=== PATIENT | female | born 1955 | race Caucasian/White ===

== ENCOUNTER → 2016-07-02 | Outpatient (CLI) | payer MEDICARE, OTHER ==
[~2016-07-02] MED LIST: ABILIFY PO; ACETAMINOP160 MG/13 GT; ACETAMINOPHEN PO; ACETIC ACID 2% AU; ACETIC ACID-HC10 ML OU; ACID CONTROL150 M1 GT; ADULT MUCU100 MG/5 M; ALBUTEROL 0.5ML INH; ALBUTEROL2.5 MG/3 M INH; ALLERGY RELIEF10 M6 GT; ANUCORT-HC PR; ANUSOL SUPP1 SUPP PR; APAP CODEINE; ARTIFICIAL TEAR15 M6 OU; ARTIFICIAL TEAR15 ML OU; BACID; BACID GT; BACID PEG; BACLOFEN10 MG GT; BACLOFEN10 MG PO; BACTROBAN15 GM TOP; BIAXIN PO; BISA-LAX10 MG/SUP1 RC; BISACODYL10 MG GT; BISACODYL10 MG/SUPP PR; CALCIUM CA500 MG/5 M GT; CALCIUM CARBON650 MG GT; CALCIUM PEG; CALCIUM500 MG; CECLOR PO; CENTRUM; CENTRUM GT; CERTAVITE GT; CHLORHEXIDINE FL1 ML MC; CLARITIN10 M1; CLARITIN10 MG GT; CLEOCIN PO; COLACE50 MG/5 ML GT; CORRECTOL5 MG GT; DEPAKOTE GT; DEPAKOTE SPRIN125 MG GT; DIOCTO GT; DITROPAN5 MG; DOCUSATE SODIUM GT; EASY-LAX100 MG PO; EES/SULFISOXAZ100 ML PO; FAMOTIDINE PO; FERRO-TIME325 MG PO; FIBERSTAT GT; FISH OIL 1,0001 EAC1 PO; FISH OIL 11600 MG/5 GT; FLEET GLYC1 SUPP.REC PR; FLONASE ALLERG9.9 ML; FLONASE SENSIM9.9 ML; FLONASE16 GM; FOSAMAX GT; GABAPENTIN400 M2 GT; GAS RELIEF; GAS-X166 MG GT; GASTROCROM PEG; GAVILYTE-C SO4000 ML GT; GENTLE LAXATIVE10 MG; HALDOL GT; HALDOL PO; HEMOCYTE-F TABL1 TAB PO; HEMOCYTE324 MG PO; IMMUNOTHERAPY SUBQ; KEFLEX500 MG PO; LACTULOSE10 G/15 ML GT; LANSOPRAZOLE30 MG PEG; LEVAQUIN GT; LEVAQUIN PO; LORTAB 7.5-5001 TAB PO; LOVENOX SUBQ; MACRODANTIN GT; MACRODANTIN PEG; MACRODANTIN PO; MILK OF MAGNESIA PEG; MIRALAX17 GM GT; MUCINEX DM1 TAB.SR . PO; MULTI-DELYN473 M1 GT; MYLICON40 MG/0.1 GT; NEBCIN1.2 GM IV; NEURONTIN PO; NEURONTIN300 MG PO; OMEGA 3 1,0001 EACH GT; OYSTER CALCIUM500 MG GT; PATADAY2.5 ML OU; PATANOL5 ML; PAXIL GT; PERIDEX480 ML; PERIDEX480 ML PO; PHENERGAN SUPP25 M1 PR; PHOSPHASAL TAB1 EACH; PREVACID GT; PROLIA60 MG/1 ML SQ; PYRIDIUM PO; PYRIDIUM100 MG PO; REGLAN GT; REGLAN PO; RISAMINE OINTM113 GM TOP; ROBITUSSIN-DM120 ML GT; SENNA S TABLET1 TAB GT; SENNA S TABLET1 TAB PO; SENNA8.6 M2 GT; SINGULAIR PO; SODIUM CHLORID; SUDAFED PO; TOBRAMYCIN40 MG/1 ML IV; TYLENOL #3 GT; TYLENOL325 M1 GT; TYLOX 5/500 CAP1 CAP GT; UTI-STAT L3875 MG/31 GT; VITAL-D RX TABL1 TAB GT; VITAMIN C GT; VITAMIN C PO; VITAMIN C500 M1; VITAMIN C500 MG/15 PEG; VITAMIN D1000 UNI1 PO; VITAMIN D32000 UNIT GT; VITAMIN D400 UNI1 PEG; ZANTAC150 MG GT; ZINC SULFATE GT; ZINC SULFATE PO; [UNRECOGNIZED DRUG - OTHER]; [UNRECOGNIZED DRUG - OTHER] GT; [UNRECOGNIZED DRUG - OTHER] GT; [UNRECOGNIZED DRUG - OTHER] PEG; [UNRECOGNIZED DRUG - OTHER] PEG; [UNRECOGNIZED DRUG - OTHER] PEG
--- NOTE | ~2016-07-02 | CT134 ---
[facility] A Service of [facility] & [facility] RADIOLOGY TEXT RESULTS PATIENT: BABAK JIMENEZ LOCATION: CIVR : 57 UNIT #: [id number] AGE: [address]: Kathy Snyder MD SEX: F ORDER DR: [id number] [facility] [address] [place], [place] [address] [id number] O MR#: [id number] Acc #: [id number] NAME: BABAK JIMENEZ : 1955 SEX: F STUDY DATE/TIME: 07/02/2016 9:50 UNIT: CIVR ROOM: STUDY DESCRIPTION: CT Guide Attending Physician: Kathy Snyder M.D. Ordering Physician: Kathy Snyder M.D. Primary Care Physician: Alicia Schwartz MEDICAL IMAGING REPORT This report is preliminary unless electronic signature is present EXAM CT-guided bone marrow biopsy. This CT exam was performed with one or more of the following radiation dose reduction techniques: automatic exposure control, adjustment of mA and/or kV according to patient size, and iterative reconstruction. INDICATION Ms. Jimenez is a 61-year-old woman with a history of leukopenia. She is a [place] patient. PROCEDURE There risks, benefits, and alternatives to the procedure were explained to the patient's insurance follow up representative and signed, informed consent was obtained. General anesthesia was induced. Patient was placed in a left lateral decubitus position. Preliminary CT scan was performed through the region of interest. An appropriate site overlying the patient's left iliac bone was selected. Overlying skin was marked. Patient was prepped and draped in the usual sterile fashion. Time-out was performed as per protocol. Skin and subcutaneous tissues were anesthetized with buffered lidocaine and a bone marrow biopsy needle was advanced into the left iliac bone. Repeat CT scan confirmed appropriate positioning of the needle which was then advanced into the bone marrow. Bone marrow aspirate was obtained. Needle was advanced and then removed which did not appear to yield an adequate core sample. Needle was subsequently repositioned and its position was confirmed with a CT image and it was again advanced into the bone marrow and at this point, there appeared to be adequate sample. Manual pressure was then applied until hemostasis was obtained. Patient was awakened from anesthesia and transferred to the recovery room. IMPRESSION Technically successful CT-guided bone marrow biopsy and aspiration as noted above. CT was used during the procedure and permanent images were STS. [facility] A Service of [facility] RADIOLOGY TEXT RESULTS PATIENT: BABAK JIMENEZ LOCATION: [facility] : 57 UNIT #: [id number] AGE: [address]: Kathy Snyder MD SEX: F ORDER DR: saved. Dictated by... Josefina Taylor M.D. THIS IS AN ELECTRONICALLY VERIFIED REPORT Josefina Taylor M.D. at 07/04/2016 2:08 PM MARV/violeta TD: 07/03/2016 11:27 JOB #: [id number] MEDICAL IMAGING REPORT Page 1 of 1 COPY
--- NOTE | ~2016-07-02 | XA51 ---
[facility] A Service of [facility] & [facility] RADIOLOGY TEXT RESULTS PATIENT: BABAK JIMENEZ LOCATION: [facility] : 57 UNIT #: [id number] AGE: [address]: Kathy Snyder MD SEX: F ORDER DR: [id number] [facility] [address] [place], [place] [address] [id number] O MR#: [id number] Acc #: [id number] NAME: BABAK JIMENEZ : 1955 SEX: F STUDY DATE/TIME: 07/02/2016 9:50 UNIT: [facility] ROOM: STUDY DESCRIPTION: XA BX Bone Marrow Attending Physician: Kathy Snyder M.D. Ordering Physician: Kathy Snyder M.D. Primary Care Physician: Alicia Schwartz MEDICAL IMAGING REPORT This report is preliminary unless electronic signature is present EXAM XA BX bone marrow. INDICATION Ms. Jimenez is a 61-year-old woman with a history of leukopenia. She is a [place] patient. FINDINGS Please see CT guide for results. Dictated by... Josefina Taylor M.D. THIS IS AN ELECTRONICALLY VERIFIED REPORT Josefina Taylor M.D. at 07/04/2016 2:05 PM AFF/violeta TD: 07/03/2016 11:28 JOB #: [id number] MEDICAL IMAGING REPORT Page 1 of 1 COPY
[2016-07-02 07:47] LABS: EOSINOPHIL# 0.3 X10e3 (0-0.7); EOSINOPHIL% 10.1 % (0.0-7.0); HEMATOCRIT 42.7 % (35.0-45.0); HEMOGLOBIN 13.8 gm/dL (12.0-16.0); LYMPHOCYTE% 28.8 % (17.0-45.0); MEAN CELL VOLUME 82.8 FL (83-96); MEAN CORPUSCULAR HEMOGLOBIN 26.7 PG (28-34); MEAN CORPUSCULAR HGB CONC 32.3 g/dL (30-36); MONOCYTE# 0.5 X10e3 (0-1.0); MONOCYTE% 13.6 % (3.0-12.0); NEUTROPHIL# 1.6 X10e3 (1.5-7.1); NEUTROPHIL% 46.5 % (40-75); PLATELET COUNT 219 X10e3 (140-420); RED BLOOD COUNT 5.16 X10e (3.90-5.30); RED CELL DISTRIBUTION WIDTH 13.7 % (11.0-15.5); WHITE BLOOD COUNT 3.4 X10e3 (4.0-10.5)
[2016-07-02 07:49] LABS: DIFF IND NO
[2016-07-02 08:05] LABS: PARTIAL THROMBOPLASTIN TIME 29.2 SECONDS (23.5-31.3); PROTHROMBIN TIME (PATIENT) 10.1 SECONDS (9.6-11.5)
== END | disposition home or self-care (01) ==
LOC: CIVR 07:14
PROVIDERS: Internal Medicine Hematology
DX: D72.819 Decreased white blood cell count, unspecified (principal); F72 Severe intellectual disabilities; G80.9 Cerebral palsy, unspecified; K21.9 Gastro-esophageal reflux disease without esophagitis; Z88.1 Allergy status to other antibiotic agents
CPT/HCPCS: 77012; 85025; 85610; 85730; 88237; 88264; 88271; 88275; 88305; J2250; J3010

== ENCOUNTER → 2016-07-16 | Outpatient (CLI) | payer MEDICARE, OTHER | END | disposition home or self-care (01) | LOC: CSSDAY 13:14 | DX: M81.0 Age-related osteoporosis without current pathological fracture (principal); Z79.899 Other long term (current) drug therapy | CPT/HCPCS: 96372; J0897 ==

== ENCOUNTER 2016-09-06 09:02 | Inpatient (IN) | payer MEDICARE, OTHER ==
--- NOTE | ~2016-09-06 | A ---
[facility] Nutrition Therapy DATE: 09/07/16 Patient: BABAK JIMENEZ Physician: CHRYSTAL Address: [facility] Room/Bed: [address] [place] [address], Zip: [place] [address] Admit Date: 09/06/16 Date of : 57 Height: Weight: 120 54.5 NUTRITIONAL ASSESSMENT: REASON: 1 nutrition risk pt re: tubefeed Dx: fever PMH: cerebral palsy, seizure disorder, chronic iritis, dysphagia w/ aspiration PNA Anthropometrics: ht: 5'1" wt: 120# (54.5 kg) BMI 22 Labs: Cl- 99, Creat 0.3, AST 127, ALT 96, Lip 17 Meds: bisacodyl, zithromax, rocephin, miralax, lioresal, mylicon, neurotin, phenergan I/O & Bowel function: 1305/4, last BMI 09/07 Skin Integrity: puncture procedure site- posterior, bruising- rt lower arm, left lower forearm, cellulitis- rt wrist Estimated Nutrition Needs: 6291-7751 kcal (28-33 kcal/kg) 54.5-81.75 (1.0-1.5 g/kg) Assessment: Chart reviewed, events noted. 61 y/o female admitted for fever. Ms. Jimenez is a resident of [facility] and is non-verbal, per chart. She has a PEG tube which she is currently receiving her normal enteral nutrition regimen from [place] with Osmolite 1.5 @ 110 mL/hr 7am-1pm and 4pm-9pm. Pt was not appropriate to speak with and there were no family members in the room. Please see recommendations. -Home enteral nutrition support provides 1815 kcal, 75 g pro, 919 ml free h20 Dx: Inadequate oral intake r/t PMH-dysphagia aeb PEG in place, home enteral nutrition in place. Intervention: 1. enteral nutrition Monitoring, Evaluation and Goals: 1. Enteral nutrition; tolerate/receive >80% estimated goal volume at goal 2. Labs; WNL 3. Skin; prevent skin breakdown Recommendations: 1. Change current enteral nutrition support to Osmolite 1.5 @ 20 mL/hr and advance 10 mL q 6 hours to goal rate of 50 mL/hr x 24 hours. Add free water flushes per . [facility] Nutrition Therapy DATE: 09/07/16 Patient: BABAK JIMENEZ Physician: CHRYSTAL Address: [facility] Room/Bed: [address] [place] [address], Zip: [place] [address] Admit Date: 09/06/16 Date of : 57 Height: Weight: 120 54.5 -This provides 1800 kcal, 75 g protein, 912 mL. 2. Monitor for signs of enteral nutrition tolerance. Maintain HOB 30-45 degrees during en administration RD will f/u per protocol as pt is at mild/moderately nutritional risk. Respectfully, ANDREW SNYDER RD, LD Margie Landrum MS, RD, LD Food and Nutritional Services [facility] cc: client file
--- NOTE | ~2016-09-06 | CR7 ---
[facility] A Service of [facility] & [facility] RADIOLOGY TEXT RESULTS PATIENT: BABAK MARIE LOCATION: [place] [address] : [birth year] UNIT #: [id number] AGE: [address]: Robyn Valdez MD SEX: F ORDER DR: [id number] [facility] [address] [place], [place] [address] [id number] I MR#: [id number] Acc #: [id number] NAME: BABAK MARIE : 1955 SEX: F STUDY DATE/TIME: 09/06/2016 15:40 UNIT: [facility] ROOM: [facility] STUDY DESCRIPTION: CR Abdomen Single AP View Attending Physician: Joanie Demarco M.D. Ordering Physician: Ed Darrin Castano M.D. Primary Care Physician: Alicia Schwartz MEDICAL IMAGING REPORT This report is preliminary unless electronic signature is present EXAM AP abdomen HISTORY Abdomen pain and constipation for 10 days. FINDINGS There is moderately severe gaseous distension of the right colon and proximal transverse colon measuring up to just over 12 cm in diameter, and there is gaseous distension of small bowel in the left and right abdomen and upper pelvis measuring up to 6 cm in the left upper quadrant and just over 5 cm in the pelvis. Findings could be due to generalized ileus versus bowel obstruction, and the appearance could be secondary to colonic obstruction in the transverse colon. Either short-term followup x-ray or CT should be considered. Gastrostomy tube projected over the left upper quadrant. The stomach is decompressed. Dictated by... Shukri Parisi M.D. THIS IS AN ELECTRONICALLY VERIFIED REPORT Shukri Parisi M.D. at 09/07/2016 3:04 PM DFL/psc TD: 09/07/2016 00:16 JOB #: [id number] MEDICAL IMAGING REPORT Page 1 of 1 COPY
--- NOTE | ~2016-09-06 | CT2 ---
[facility] A Service of [facility] & [facility] RADIOLOGY TEXT RESULTS PATIENT: BABAK MARIE LOCATION: [facility] 55-01 : 56 UNIT #: [id number] AGE: [address]: Robyn Valdez MD SEX: F ORDER DR: [id number] [facility] [address] [place], [place] [address] [id number] I MR#: [id number] Acc #: [id number] NAME: BABAK MARIE : 1955 SEX: F STUDY DATE/TIME: 09/08/2016 17:08 UNIT: [facility] ROOM: [facility] STUDY DESCRIPTION: CT Abd and Pelv W Cont Attending Physician: Robyn Valdez M.D. Ordering Physician: Robyn Valdez M.D. Primary Care Physician: Alicia Schwartz MEDICAL IMAGING REPORT This report is preliminary unless electronic signature is present EXAM CT abdomen and pelvis with contrast HISTORY 61-year-old female with abdominal distension, UTI, fever since 09/06/2016. COMPARISON CT abdomen and pelvis, 10/26/2014 FINDINGS Axial images performed through the abdomen and pelvis following IV and oral contrast. Multiplanar reconstructed images reviewed at a workstation. This CT exam was performed with one or more of the following radiation dose reduction techniques: Automatic exposure control, adjustment of mA and/or kV according to patient size, and iterative reconstruction. ABDOMEN: There are small bilateral pleural effusions right greater than left, with a moderate amount of bibasilar atelectasis and/or infiltrate. Liver and spleen unremarkable. Gallbladder surgically absent. Pancreas, kidneys and adrenal glands unremarkable. There is diffuse abdominal distension with multiple air-fluid levels. This is nonspecific in the institutionalized patient. G tube with the balloon inflated is seen in the stomach. Retroperitoneum unremarkable. PELVIS: Bladder is distended with a small amount of gas possibly related to recent instrumentation. Uterus and adnexa unremarkable. Osseous structures demonstrate osteopenia. Mild biconcave deformity of L3 suggests mild fracture, does not appear acute. IMPRESSION 1. Small bilateral pleural effusions with bibasilar atelectasis and/or infiltrates. [facility] A Service of [facility] & [facility] RADIOLOGY TEXT RESULTS PATIENT: BABAK MARIE LOCATION: [facility] 554-01 : [birth year] UNIT #: [id number] AGE: [address]: Robyn Valdez MD SEX: F ORDER DR: 2. Diffuse abdominal distension with air and fluid distension and multiple air-fluid levels. This is nonspecific in the institutionalized patient and may reflect nonobstructive dilatation. Correlate with patient's clinical symptoms. Potentially, this could represent an ileus. Distal obstruction considered unlikely as there is no obstructing lesion identified and the dilatation involves both small and large bowel. The G tube appears in appropriate position. 3. Moderately distended bladder. Dictated by... Lenora Garcia M.D. THIS IS AN ELECTRONICALLY VERIFIED REPORT Lenora Garcia M.D. at 09/09/2016 2:48 PM OBED/nanda TD: 09/08/2016 23:55 JOB #: [id number] MEDICAL IMAGING REPORT Page 1 of 1 COPY
--- NOTE | ~2016-09-06 | CR72 ---
[facility] A Service of [facility] & [facility] RADIOLOGY TEXT RESULTS PATIENT: BABAK MARIE LOCATION: [facility] 554-01 : 57 UNIT #: [id number] AGE: [address]: Robyn Valdez MD SEX: F ORDER DR: [id number] [facility] [address] [place], [place] [address] [id number] MR#: [id number] Acc #: [id number] NAME: BABAK MARIE : 1955 SEX: F STUDY DATE/TIME: 09/06/2016 10:34 UNIT: [facility] ROOM: STUDY DESCRIPTION: CR Chest Single View Portable Ordering Physician: Conor David M.D. MEDICAL IMAGING REPORT This report is preliminary unless electronic signature is present EXAM Portable chest INDICATIONS Fever and low oxygen saturations today. COMPARISON STUDIES 06/15/2010. FINDINGS There is low-volume inspiration. There is a dense infiltrate in the left base suspicious for pneumonia. There are generalized increased interstitial markings. There is some atelectasis in the right base. Heart size stable. Prominent bowel gas. IMPRESSION Low-volume inspiration. Dense consolidation in the left base suspicious for pneumonia. Generalized hazy increased interstitial markings. Dictated by... Mejia Garcia M.D. THIS IS AN ELECTRONICALLY VERIFIED REPORT Mejia Garcia M.D. at 09/07/2016 7:50 AM ARS/pcl TD: 09/06/2016 14:05 JOB #: [id number] MEDICAL IMAGING REPORT Page 1 of 1 COPY
--- NOTE | ~2016-09-06 | DS ---
Unit #: [id number] #: [id number] Patient: BABAK MARIE [id number] [facility] [address] [place], [place] [address] [id number] I MR#: [id number] NAME: BABAK MARIE ROOM: [facility] Age: 61 Sex: F Admission Date: 09/06/2016 : 1955 Discharge Date: 09/12/2016 Attending Physician: Robyn Valdez M.D. Primary Care Physician: Alicia Schwartz DISCHARGE SUMMARY DIAGNOSIS ON ADMISSION Left pneumonia. DIAGNOSES ON DISCHARGE 1. Pneumonia. 2. Acute respiratory failure, improved. 3. Abdominal ileus improved. 4. Acute extended fgmaspgz-mren-lmffgjiil urinary tract infection. 5. History of profound mental retardation with cerebral palsy. 6. Functional quadriplegia. 7. Seizure disorder. 8. Dysphagia with percutaneous endoscopic gastrostomy tube feeds. 9. Osteoporosis. 10. Esophagitis. DIAGNOSTIC STUDIES LABORATORY: Patient's WBC is 3.5, hemoglobin 11.5, and platelet count is 313. Patient's creatinine is 0.5, sodium 139, and potassium is 4.3. IMAGING: Abdominal x-ray revealed ileus, which shows improvement as compared with the previous examination. HOSPITAL COURSE This 61-year-old female was admitted to [facility] and was treated for pneumonia, which was causing fever. Pneumonia, which could be aspiration. Patient was treated with antibiotics and is feeling much better now. Acute E. coli ESBL UTI. Patient is being treated with antibiotics and she will be transferred on Invanz back to the facility. Abdominal ileus. Patient's tube feeds were slowly advanced and she is tolerating it good. RECOMMENDATIONS ON DISCHARGE 1. Condition is stable. 2. Activity as tolerated. MEDICATIONS 1. Tylenol 650 mg via G tube q.6 hours p.r.n. fever. 2. Flonase 2 sprays each nostril b.i.d. 3. Anusol suppository 25 mg per rectally every 48 hours for now. Unit #: [id number] #: [id number] Patient: BABAK MARIE 4. Neurontin 400 mg via G tube b.i.d. 5. Lactobacillus 1 tablet via G tube daily. 6. Mylicon 120 mg via G tube b.i.d. 7. Phenergan 12.5 mg per rectally as needed. 8. Dulcolax suppository q.48 hours. 9. Colace 100 mg b.i.d. 10. MiraLAX 17 g b.i.d. 11. Fish oil daily. 12. Zantac 150 mg via G tube b.i.d. 13. Tylenol with codeine #3 one tablet q.8 hours p.r.n. Script was written. 14. Tums 500 mg via G tube b.i.d. 15. Vitamin D 2000 units via G tube daily. 16. Invanz 1 g IV daily for 1 week. DISPOSITION Patient will be transferred to [place]. Please feel free to call us if there are any questions regarding this hospitalization. Patient's overall prognosis is poor. Kindly discuss goals of care with healthcare surrogate. Dictated by... Khadra Griggs TD: 09/12/2016 11:00 JOB #: [id number] DISCHARGE SUMMARY Page 1 of 1 X Lalitha Maria MD X DISCHARGE SUMMARY
--- NOTE | ~2016-09-06 | CR4 ---
[facility] A Service of [facility] RADIOLOGY TEXT RESULTS PATIENT: BABAK MARIE LOCATION: [facility] : 56 UNIT #: [id number] AGE: [address]: Robyn Valdez MD SEX: F ORDER DR: [id number] [facility] [address] [place], [place] [address] [id number] I MR#: [id number] Acc #: [id number] NAME: BABAK MARIE : 1955 SEX: F STUDY DATE/TIME: 09/10/2016 14:05 UNIT: [facility] ROOM: [facility] STUDY DESCRIPTION: CR Abdomen Flat Upright or Dec Attending Physician: Robyn Valdez M.D. Ordering Physician: Robyn Valdez M.D. Primary Care Physician: Alicia Schwartz MEDICAL IMAGING REPORT This report is preliminary unless electronic signature is present EXAM KUB COMPARISON 09/06/2016 HISTORY Adynamic ileus with abdominal pain, distension and fever beginning 09/06/2016 TECHNIQUE Single AP view of the abdomen was obtained. FINDINGS Distended small and large bowel loops are again seen. The degree of distension has improved slightly since the previous examination. No free air is identified. No progressive distension is seen. IMPRESSION The ileus shows improvement since the previous examination although moderate bowel distension is again noted. STAT * RESULT Dictated by... Moi Rush M.D. THIS IS AN ELECTRONICALLY VERIFIED REPORT Moi Rush M.D. at 09/10/2016 6:52 PM RLF/rachel [facility] A Service of [facility] RADIOLOGY TEXT RESULTS PATIENT: ABBAK MARIE LOCATION: [facility] : 56 UNIT #: [id number] AGE: [address]: Robyn Valdez MD SEX: F ORDER DR: TD: 09/10/2016 14:54 JOB #: [id number] MEDICAL IMAGING REPORT Page 1 of 1 COPY
--- NOTE | ~2016-09-06 | FU ---
[facility] Nutrition Therapy DATE: 09/11/16 Patient: BABAK MARIE Physician: CHRYSTAL Address: [facility] Room/Bed: [address] [place] [address], Zip: [place] [address] Admit Date: 09/06/16 Date of : [birth year] Height: Weight: 120 54.5 NUTRITION MONITORING/FOLLOW-UP: Reason: Tubefeeding follow-up, consult re: KAREN levi Pt is a 61 y/o female admitted for a fever. Anthropometrics: ht: 5'1" wt: 120# (54.5 kg) BMI 22 Labs: BUN 5, Alb 3.3, ALT 48 Meds: bisacodyl, zithromax, rocephin, miralax, lioreal, mylicon, neurotin, phenergan I&O's: 2360/58. Last BM 09/10. Skin: puncture procedure site- posterior; bruising- rt lower arm, left lower forearm; cellulitis- rt wrist Estimated Nutrition Needs: 3253-1332 kcal (28-33 kcal/kg) 54.5-81.75 g protein (g/kg) Assessment: Chart reviewed, events noted. Seeing pt for TF f/u and consult re: KAREN levi. RD manufacturing intern visited pt at bedside to check pump histoy. Pt is currently receiving Osmolite 1.5 @ 20 ml/hr x 24 hours (363 ml past 24 hours, 30% goal volume), per pump history. Please note previous recommendations to increase to goal of 50 mL/hr not met. RD manufacturing intern spoke with RN, who reports she is going to slowly increase the enteral nutrition support today to eventually reach goal of 50 mL/hr. RD will continue to follow. Dx: Inadequate oral intake r/t PMH-dysphagia AEB PEG in place, home enteral nutrition in place. Intervention: 1. enteral nutrition support Monitoring, Evaluation and Goals: 1. Enteral nutrition; tolerate/receive >80% estimated goal volume at goal -IN PROGRESS 2. Labs; WNL -MET/IN PROGRESS 3. Skin; prevent skin breakdown -IN PROGRESS NEW GOAL (IN ADDITION TO ABOVE): 1. GI; promote regular GI function Recommendations: [facility] Nutrition Therapy DATE: 06/23/17 Patient: BABAK MARIE Physician: [id number] Address: [facility] Room/Bed: [address] [place] [address], Zip: [place] [address] Admit Date: 09/06/16 Date of : 57 Height: Weight: 120 54.5 1. Continue current enteral nutrition support of Osmolite 1.5 @ 20 mL/hr and advance 10 mL q 4 hours to goal rate of 50 mL/hr. This will provide 1800 kcal, 75 g protein, 912 mL. Add free water flushes per MD. 2. Monitor for signs of enteral nutrition intolerance. Maintain HOB 30-45 degrees during EN administration. RD will f/u per protocol as pt is at mild/moderate nutritional risk. Respectfully, ANDREW SNYDER, internal recruiter Margo Knott, RD, LD Food and Nutritional Services [facility] cc: client file
--- NOTE | ~2016-09-06 | HP ---
Unit #: [id number] #: [id number] Patient: BABAK MARIE [id number] [address] [place], [place] [address] [id number] I MR#: [id number] NAME: BABAK MARIE ROOM: 12950 Age: 61 Sex: F Admission Date: 09/06/2016 : 1955 Attending Physician: Mati Demarco M.D. Primary Care Physician: Alicia Schwartz HISTORY AND PHYSICAL CHIEF COMPLAINT Fever. HISTORY OF PRESENT ILLNESS The patient is a 61-year-old female, with history of cerebral palsy, with profound retardation brought, brought from the [facility] with a fever of 100.9 associated with shortness of breath. The patient is a poor historian and the history is obtained from the caregiver at the bedside. The patient has been not by herself since last . The patient was diagnosed with a UTI yesterday and was started on oral antibiotics. The patient was found to have a low oxygen saturation and abdominal distension this morning and presented to the emergency room for the above reasons. The patient was found to have a left lower base consolidation pneumonia and is being admitted for the above reasons. 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 PAST SURGICAL HISTORY Cholecystectomy, rectal prolapse, flexion contractures. SOCIAL HISTORY The patient resides at [facility]. No history of smoking, alcohol or any illicit drug abuse. FAMILY HISTORY Unable to obtain. ALLERGIES Aminoglycosides, sulfa, Depakote, trimethoprim, metoclopramide, gentamicin. HOME MEDICATIONS 1. Tylenol. 2. Artificial Tears. 3. On feeding tube, Osmolite 1.5 calories. 4. Anucort. 5. Baclofen. 6. Bisacodyl. 7. Calcium. Unit #: [id number] #: [id number] Patient: BABAK MARIE 8. Colace. 9. Fish oil. 10. Gabapentin. 11. Vitamin. 12. Ranitidine. 13. Ciprofloxacin eye drops. REVIEW OF SYMPTOMS Unable to obtain. PHYSICAL EXAMINATION GENERAL APPEARANCE: The patient is lying on the bed, not in acute distress. VITAL SIGNS: Temperature 98.8. Pulse 101. Respiratory rate 18. Blood pressure 130/69. Sating 90% on four liters of nasal cannula. HEENT: Head: Atraumatic, normocephalic. ENT: Pupils equal, round, reacting to light and accommodation. Dry mucous membrane. NECK: Supple. LUNGS: Decreased air entry at the bases. Positive for rhonchi. HEART: Regular rate and rhythm. ABDOMEN: Positive for bowel sounds. PEG tube in place. EXTREMITIES: No clubbing. No cyanosis. NEUROLOGIC: Patient with altered mental status and with a history of profound retardation and the cerebral palsy, unable to follow the commands. DIAGNOSTIC STUDIES LABORATORY: UA shows 1+ leukocyte esterase. No bacteria. Sodium 132, potassium 3.6, chloride 93, bicarb 31, glucose 128, BUN 15, creatinine 0.5, calcium 8.6, AST 127, ALT 96. Lipase 17. Lactic acid 1.3. WBC 6.1, hemoglobin 11.7, hematocrit 36.1, platelets 192. IMAGING: Chest x-ray shows low volume inspiration, dense consolidation at the left base suspicious for pneumonia, generalized hazy increased interstitial markings. ASSESSMENT 1. Left base pneumonia. No consolidation pneumonia. 2. Altered mental status. 3. Hyponatremia. PLAN To admit the patient to observation. The patient received IV fluids, gentle, NS 75 mL per hour and IV antibiotics with Rocephin and Zithromax and we will check the sputum cultures and repeat the labs again in the morning and further recommendations to follow. Dictated by Khadra Rubio TD: 09/06/2016 15:45 JOB #: [id number] Unit #: [id number] #: [id number] Patient: BABAK MARIE HISTORY AND PHYSICAL Page 1 of 1 X MATI DEMARCO MD X HISTORY AND PHYSICAL
[~2016-09-06 09:02] MED LIST changes: -ACETAMINOP160 MG/13 GT; -ACETIC ACID 2% AU; -ALBUTEROL2.5 MG/3 M INH; -ANUCORT-HC PR; -ARTIFICIAL TEAR15 M6 OU; -BACLOFEN10 MG GT; -BISACODYL10 MG GT; -CALCIUM CA500 MG/5 M GT; -CERTAVITE GT; -CHLORHEXIDINE FL1 ML MC; -COLACE50 MG/5 ML GT; -FIBERSTAT GT; -FISH OIL 11600 MG/5 GT; -FLONASE SENSIM9.9 ML; -GABAPENTIN400 M2 GT; -GAVILYTE-C SO4000 ML GT; -NEBCIN1.2 GM IV; -OMEGA 3 1,0001 EACH GT; -PHENERGAN SUPP25 M1 PR; -PYRIDIUM PO; -RISAMINE OINTM113 GM TOP; -SODIUM CHLORID; -TYLENOL #3 GT; -UTI-STAT L3875 MG/31 GT; -VITAMIN D32000 UNIT GT; -ZANTAC150 MG GT; -[UNRECOGNIZED DRUG - OTHER] GT; -[UNRECOGNIZED DRUG - OTHER] GT
[2016-09-06 11:15] LABS: BASOPHIL% 0.1 % (0-2.5); EOSINOPHIL% 0.2 % (0.0-7.0); HEMATOCRIT 36.1 % (35.0-45.0); LYMPHOCYTE# 0.6 X10e3 (1.0-3.5); LYMPHOCYTE% 10.3 % (17.0-45.0); MEAN CELL VOLUME 83.8 FL (83-96); MEAN CORPUSCULAR HEMOGLOBIN 27.3 PG (28-34); MEAN CORPUSCULAR HGB CONC 32.5 g/dL (30-36); MEAN PLATELET VOLUME 8.1 FL (6.5-11.5); MONOCYTE# 1.1 X10e3 (0-1.0); MONOCYTE% 17.3 % (3.0-12.0); NEUTROPHIL# 4.4 X10e3 (1.5-7.1); NEUTROPHIL% 72.1 % (40-75); PLATELET COUNT 192 X10e3 (140-420); RED BLOOD COUNT 4.31 X10e (3.90-5.30); RED CELL DISTRIBUTION WIDTH 15.2 % (11.0-15.5); WHITE BLOOD COUNT 6.1 X10e3 (4.0-10.5)
[2016-09-06 11:21] LABS: DIFF IND NO; HEMOGLOBIN 11.7 gm/dL (12.0-16.0)
[2016-09-06 11:36] LABS: URINE SOURCE CLEAN CATCH
[2016-09-06 11:42] LABS: URINE APPEARANCE CLEAR; URINE BILIRUBIN NEG (NEG); URINE BLOOD NEG (NEG); URINE COLOR YELLOW; URINE GLUCOSE NEG (NEG); URINE KETONE NEG (NEG); URINE LEUKOCYTE ESTERASE 1+ (NEG); URINE NITRATE NEG (NEG); URINE PH 7.5 (5-8); URINE PROTEIN TRACE (NEG); URINE SPECIFIC GRAVITY 1.015 (1.003-1.035)
[2016-09-06 11:44] LABS: URINE BACTERIA AUWI NEG (NEGATIVE); URINE SQUAMOUS EPITHELIAL CELL NONE SEEN /[HPF]
[2016-09-06 11:47] LABS: ALBUMIN SERUM 3.7 g/dL (3.5-5.0); BILIRUBIN, DIRECT 0.5 mg/dL (0.0-0.2); BILIRUBIN,INDIRECT 1.4 mg/dL (0.0-0.9); BILIRUBIN,TOTAL 1.9 mg/dL (0.2-2.0); CALCIUM SERUM 8.6 mg/dL (8.4-10.2); CREATININE SERUM 0.5 mg/dL (0.6-1.4); GLOM FILT RATE Estimated 105.2 mL/min (>60); POTASSIUM 3.6 mmol/L (3.5-5.1); PROTEIN TOTAL SERUM 6.3 g/dL (6.0-8.3)
[2016-09-06 11:57] LABS: CULTURE INDICATED? NO; URBCS1 AUWI 0-2 /[HPF] (0-2)
[2016-09-06] MEDS ORDERED: TYLENOL #3 GT (16:50)
[2016-09-06] MEDS ORDERED: ARTIFICIAL TEAR15 M6 OU (16:53)
[2016-09-06] MEDS ORDERED: UTI-STAT L3875 MG/31 GT (16:54)
[2016-09-06] MEDS ORDERED: FIBERSTAT GT (16:55)
[2016-09-06] MEDS ORDERED: [UNRECOGNIZED DRUG - OTHER] GT (16:55)
[2016-09-06] MEDS ORDERED: NEBCIN1.2 GM IV (16:57)
[2016-09-06] MEDS ORDERED: PHENERGAN SUPP25 M1 PR (16:58)
[2016-09-06] MEDS ORDERED: SODIUM CHLORID (16:59)
[2016-09-06] MEDS ORDERED: RISAMINE OINTM113 GM TOP (17:00)
[2016-09-06] MEDS ORDERED: ANUCORT-HC PR ×2 (17:02→17:03)
[2016-09-06] MEDS ORDERED: BACLOFEN10 MG GT (17:03)
[2016-09-06] MEDS ORDERED: BISACODYL10 MG GT (17:04)
[2016-09-06] MEDS ORDERED: CALCIUM CA500 MG/5 M GT (17:06)
[2016-09-06] MEDS ORDERED: CERTAVITE GT (17:07)
[2016-09-06] MEDS ORDERED: FISH OIL 11600 MG/5 GT (17:08)
[2016-09-06] MEDS ORDERED: COLACE50 MG/5 ML GT (17:08)
[2016-09-06] MEDS ORDERED: GABAPENTIN400 M2 GT (17:09)
[2016-09-06] MEDS ORDERED: MYLICON40 MG/0.1 GT (17:10)
[2016-09-06] MEDS ORDERED: [UNRECOGNIZED DRUG - OTHER] GT (17:11)
[2016-09-06] MEDS ORDERED: GAVILYTE-C SO4000 ML GT (17:12)
[2016-09-06] MEDS ORDERED: ZANTAC150 MG GT (17:13)
[2016-09-06] MEDS ORDERED: VITAMIN D32000 UNIT GT (17:13)
[2016-09-06] MEDS ORDERED: BACID GT (17:14)
[2016-09-06] MEDS ORDERED: ACETAMINOP160 MG/13 GT (17:17)
[2016-09-06] MEDS ORDERED: ACETIC ACID 2% AU (17:19)
[2016-09-06] MEDS ORDERED: PATADAY2.5 ML OU (17:21)
[2016-09-06] MEDS ORDERED: FLONASE SENSIM9.9 ML (17:21)
[2016-09-07 06:04] LABS: BUN/CREATININE RATIO 56.66; CALCIUM SERUM 8.5 mg/dL (8.4-10.2); CREATININE SERUM 0.3 mg/dL (0.6-1.4); GLOM FILT RATE Estimated 124.5 mL/min (>60); POTASSIUM 3.8 mmol/L (3.5-5.1)
[2016-09-07 07:36] LABS: HEMATOCRIT 36.5 % (35.0-45.0); HEMOGLOBIN 11.7 gm/dL (12.0-16.0); MEAN CELL VOLUME 84.1 FL (83-96); MEAN CORPUSCULAR HEMOGLOBIN 27.1 PG (28-34); MEAN CORPUSCULAR HGB CONC 32.2 g/dL (30-36); RED BLOOD COUNT 4.33 X10e (3.90-5.30); RED CELL DISTRIBUTION WIDTH 15.6 % (11.0-15.5); WHITE BLOOD COUNT 4.6 X10e3 (4.0-10.5)
[2016-09-08 05:19] LABS: HEMATOCRIT 32.7 % (35.0-45.0); HEMOGLOBIN 10.7 gm/dL (12.0-16.0); MEAN CORPUSCULAR HEMOGLOBIN 27.4 PG (28-34); MEAN CORPUSCULAR HGB CONC 32.7 g/dL (30-36); MEAN PLATELET VOLUME 7.6 FL (6.5-11.5); RED BLOOD COUNT 3.89 X10e (3.90-5.30); RED CELL DISTRIBUTION WIDTH 15.3 % (11.0-15.5); WHITE BLOOD COUNT 3.6 X10e3 (4.0-10.5)
[2016-09-08 06:35] LABS: ALBUMIN SERUM 3.1 g/dL (3.5-5.0); BILIRUBIN,TOTAL 0.6 mg/dL (0.2-2.0); BUN/CREATININE RATIO 46.66; CALCIUM SERUM 8.4 mg/dL (8.4-10.2); CREATININE SERUM 0.3 mg/dL (0.6-1.4); GLOM FILT RATE Estimated 124.5 mL/min (>60); POTASSIUM 3.5 mmol/L (3.5-5.1); PROTEIN TOTAL SERUM 5.3 g/dL (6.0-8.3)
[2016-09-09 06:25] LABS: BASOPHIL% 0.7 % (0-2.5); EOSINOPHIL# 0.2 X10e3 (0-0.7); EOSINOPHIL% 4.5 % (0.0-7.0); HEMATOCRIT 35.4 % (35.0-45.0); HEMOGLOBIN 11.4 gm/dL (12.0-16.0); LYMPHOCYTE# 0.9 X10e3 (1.0-3.5); LYMPHOCYTE% 19.6 % (17.0-45.0); MEAN CELL VOLUME 84.5 FL (83-96); MEAN CORPUSCULAR HEMOGLOBIN 27.3 PG (28-34); MEAN CORPUSCULAR HGB CONC 32.3 g/dL (30-36); MEAN PLATELET VOLUME 8.7 FL (6.5-11.5); MONOCYTE# 0.8 X10e3 (0-1.0); MONOCYTE% 16.9 % (3.0-12.0); NEUTROPHIL# 2.7 X10e3 (1.5-7.1); NEUTROPHIL% 58.3 % (40-75); PLATELET COUNT 223 X10e3 (140-420); RED BLOOD COUNT 4.19 X10e (3.90-5.30); RED CELL DISTRIBUTION WIDTH 14.7 % (11.0-15.5); WHITE BLOOD COUNT 4.6 X10e3 (4.0-10.5)
[2016-09-09 06:26] LABS: DIFF IND NO
[2016-09-09 07:15] LABS: ALBUMIN SERUM 3.3 g/dL (3.5-5.0); BILIRUBIN,TOTAL 1.1 mg/dL (0.2-2.0); CALCIUM SERUM 8.2 mg/dL (8.4-10.2); CREATININE SERUM 0.4 mg/dL (0.6-1.4); GLOM FILT RATE Estimated 113.2 mL/min (>60); POTASSIUM 4.2 mmol/L (3.5-5.1); PROTEIN TOTAL SERUM 5.4 g/dL (6.0-8.3)
[2016-09-10 06:20] LABS: HEMATOCRIT 37.1 % (35.0-45.0); MEAN CELL VOLUME 83.2 FL (83-96); MEAN CORPUSCULAR HEMOGLOBIN 26.9 PG (28-34); MEAN CORPUSCULAR HGB CONC 32.4 g/dL (30-36); MEAN PLATELET VOLUME 7.2 FL (6.5-11.5); RED BLOOD COUNT 4.46 X10e (3.90-5.30); WHITE BLOOD COUNT 3.8 X10e3 (4.0-10.5)
[2016-09-10 07:34] LABS: BUN/CREATININE RATIO 12.5; CALCIUM SERUM 8.6 mg/dL (8.4-10.2); CREATININE SERUM 0.4 mg/dL (0.6-1.4); GLOM FILT RATE Estimated 113.2 mL/min (>60); POTASSIUM 3.4 mmol/L (3.5-5.1)
[2016-09-11 08:44] LABS: HEMATOCRIT 37.8 % (35.0-45.0); MEAN CELL VOLUME 84.8 FL (83-96); MEAN CORPUSCULAR HEMOGLOBIN 26.9 PG (28-34); MEAN CORPUSCULAR HGB CONC 31.7 g/dL (30-36); RED BLOOD COUNT 4.46 X10e (3.90-5.30); RED CELL DISTRIBUTION WIDTH 14.9 % (11.0-15.5); WHITE BLOOD COUNT 3.7 X10e3 (4.0-10.5)
[2016-09-11 09:10] LABS: BUN/CREATININE RATIO 8.33; CALCIUM SERUM 8.5 mg/dL (8.4-10.2); CREATININE SERUM 0.6 mg/dL (0.6-1.4); GLOM FILT RATE Estimated 99.1 mL/min (>60); POTASSIUM 4.2 mmol/L (3.5-5.1)
[2016-09-12 05:25] LABS: HEMATOCRIT 35.3 % (35.0-45.0); HEMOGLOBIN 11.5 gm/dL (12.0-16.0); MEAN CELL VOLUME 84.1 FL (83-96); MEAN CORPUSCULAR HEMOGLOBIN 27.3 PG (28-34); MEAN CORPUSCULAR HGB CONC 32.5 g/dL (30-36); MEAN PLATELET VOLUME 7.4 FL (6.5-11.5); RED BLOOD COUNT 4.2 X10e (3.90-5.30); RED CELL DISTRIBUTION WIDTH 14.6 % (11.0-15.5); WHITE BLOOD COUNT 3.5 X10e3 (4.0-10.5)
[2016-09-12 06:38] LABS: CALCIUM SERUM 8.7 mg/dL (8.4-10.2); CREATININE SERUM 0.5 mg/dL (0.6-1.4); GLOM FILT RATE Estimated 105.2 mL/min (>60); POTASSIUM 4.3 mmol/L (3.5-5.1)
== END 2016-09-13 08:12 | DRG 177 ==
LOC: CED 09:02 → CEDOF 15:00 → CED 15:00 → CEDOF 15:24 → CED 15:24 → C5B 17:40 → CEDOF 17:40 → C5B 17:40 → CEDOF 18:16 → C5B 18:16
PROVIDERS: Emergency Medicine; Internal Medicine
DX: J15.6 Pneumonia due to other Gram-negative bacteria (principal); J96.01 Acute respiratory failure with hypoxia; R53.2 Functional quadriplegia; K56.7 Ileus, unspecified; F73 Profound intellectual disabilities; G80.9 Cerebral palsy, unspecified; E87.1 Hypo-osmolality and hyponatremia; N39.0 Urinary tract infection, site not specified; Z16.12 Extended spectrum beta lactamase (ESBL) resistance; G40.909 Epilepsy, unspecified, not intractable, without status epilepticus; R13.10 Dysphagia, unspecified; Z93.1 Gastrostomy status; M81.0 Age-related osteoporosis without current pathological fracture; K20.9 Esophagitis, unspecified; R41.82 Altered mental status, unspecified; K59.00 Constipation, unspecified; E87.6 Hypokalemia; Z90.49 Acquired absence of other specified parts of digestive tract; Z88.1 Allergy status to other antibiotic agents; Z88.2 Allergy status to sulfonamides; Z88.8 Allergy status to other drugs, medicaments and biological substances
CPT/HCPCS: 36415; 71010; 74000; 74020; 74177; 80048; 80053; 80076; 80200; 81003; 82150; 83605; 83690; 85025; 85027; 87040; 87086; 87088; 87186; 94640; 94760; 96361; 96374; 99285; J0456; J0696; J1650; J2270; J3260; Q9967

== ENCOUNTER 2016-09-25 16:27 | Inpatient (IN) | payer MEDICARE, OTHER ==
--- NOTE | ~2016-09-25 | A ---
[facility] Nutrition Therapy DATE: 09/26/16 Patient: BABAK MARIE Physician: ANALI Address: [facility] Room/Bed: [address] [place] [address], Zip: [place] [address] Admit Date: 09/25/16 Date of : [birth year] Height: 5 4.5 Weight: 100 45.35 NUTRITIONAL ASSESSMENT: REASON: 1 point malnutrition risk score home tube feeds, questionable weight loss based on past weights Admitting Dx: 61 y/o female admitted from [place] with abnormal KUB and AMS PMH: GERD, esophagitis, dysphagia s/p PEG, CP, aspiration PNA, seizure disorder, functional quadriplegic Anthropometrics: Ht: 61" (per previous RD assessment), Wt: 99 lbs, BMI: 18.7 (normal) Past weights ~120 lbs Labs: Reviewed; nothing significant Meds: Bowel regimen, fish oil, MVI, Vit D, phenergan, pepcid, tums I/O & Bowel function: Last BM 09/25, + abdominal pain Skin Integrity: Nothing significant, no edema Estimated Nutrition Needs: 6169-8300 kcals/day (30-35 kcals/kg) 55-64 g protein/day (1.2-1.4 g/kg) Fluids consistent with kcal needs or per MD Assessment: Chart and past RD notes reviewed. See admitting dx and PMH as stated above, patient known to [facility] RD's. Usual EN regimen is Osmolite 1.2 @ 110 ml/hr from 7a-1p, 4p-9p, which provides 1815 kcals, 75 g protein and 919 ml water. Pt weighed 120 lbs in August of this year, current documented weight is 99-100 lbs (? accuracy), suspect weight loss. Unable to speak with [place] RD at this time as it is a weekend, patient herself is non-verbal and therefore unable to provide weight history. CT confirmed generalized ileus (pt does not have SBO as originally suspected), BM yesterday, + abdominal pain. Will write to correct current EN order based on recs below. Will follow. Dx: Inadequate oral intake r/t dysphagia AEB NPO, EN. Intervention: Correct EN order, weight trends Monitoring, Evaluation and Goals: 1. EN consistent with estimated nutritoinal needs. 2. Prevent unintentional weight loss. [facility] Nutrition Therapy DATE: 09/26/16 Patient: BABAK MARIE Physician: ANALI Address: [facility] Room/Bed: [address] [place] [address], Zip: [place] [address] Admit Date: 09/25/16 Date of : [birth year] Height: 5 4.5 Weight: 100 45.35 Monitor: Per protocol, criteria to determine if above goals met Recommendations: 1. Update current enteral nutrition order to reflect RD recommendations: Osmolite 1.5 @ goal 40 ml/hr (should run over 24 hours/day while at [facility]) =1440 kcals, 60 g protein and 730 ml water Free water flushes 250 ml QID 2. Please confirm current weight accuracy. Monitor weight trends. 3. Continue bowel regimen, consider adding Reglan noting CT confirmed ileus. 4. Monitor bowel function and GRV. Do not stop enteral feeds for residuals < 400 ml. Keep HOB elevated 30-[address] will follow Moderate nutrition risk Respectfully, Abbie Stein, ION, LD Food and Nutritional Services [facility] cc: client file
--- NOTE | ~2016-09-25 | HP ---
Unit #: [id number] #: [id number] Patient: BABAK MARIE [id number] [address] [place], [place] [address] [id number] I MR#: [id number] NAME: BABAK MARIE ROOM: 240 Age: 61 Sex: F Admission Date: 09/25/2016 : 1955 Attending Physician: Bulmaro Mendoza M.D. Primary Care Physician: Bulmaro Mendoza M.D. HISTORY AND PHYSICAL CHIEF COMPLAINT Patient was sent from [place] for abnormal KUB and she is not herself, she is trying to hit herself and more agitated than usually. DISCUSSION This is a 61-year-old female who is currently from [place]. She has a history of cerebral palsy with profound mental retardation, contracture of extremities. She usually has a sister one-to-one all the time in [place]. She has dysphagia with G-tube. She is on tube feeds. She had been having some abnormal alkaline phosphatase. She had a CT scan as an outpatient yesterday which was normal. She has been having some change in mental status, trying to hit herself. As per caregiver, she does not usually hit herself. She had a KUB done at [place] which shows questionable small bowel obstruction. She was sent to the emergency room for further workup and evaluation. She has a urine which is consistent with UTI with recurrent history of recurrent UTI and ESBL in the urine and she is going to be admitted for further IV antibiotics until final urine culture. She is nonverbal, not able to give me history. Most of the information obtained through old chart, from the old record and from the patient's caregiver. PAST MEDICAL HISTORY 1. History of profound mental retardation with cerebral palsy. 2. Seizure disorder. 3. History of functional quadriplegia. 4. History of asthma. 5. History of dysphagia, status post G-tube. 6. History of osteoporosis. 7. Esophagitis and GERD. 8. History of flexion contracture of bilateral legs. 9. History of cataract, right eye, secondary to rubella. 10. 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 11. History of chronic iritis. 12. Glaucoma. 13. Allergies and sinusitis. 14. History of constipation. PAST SURGICAL HISTORY 1. History of laparoscopic cholecystectomy. 2. History of G-tube placement. 3. Kira fundoplication. 4. Rectal tag excised. 5. Abscessed tooth extracted in the past. Unit #: [id number] #: [id number] Patient: BABAK MARIE 6. History of exploratory laparotomy for peritonitis and displaced G-tube. SOCIAL HISTORY The patient resides at [facility]. No history of smoking, alcohol or illicit drug use. She is DO NOT RESUSCITATED as per old records. Most of the time she has one-to-one sitter. FAMILY HISTORY Unable to obtain. ALLERGIES She is allergic to aminoglycosides, Vibramycin, Depakote, sulfamethoxazole, trimethoprim, gentamicin, metoclopramide, Mobic. MEDICATIONS Medications from home as followin. Phenazopyridine 100 mg three times daily p.r.n. 2. Flonase, two sprays daily. 3. Pataday, one drop every other day. 4. Albuterol nebulizer four times a day p.r.n. 5. Chlorhexidine. 6. Zantac 150 twice a day. 7. Vitamin D3 2000 units daily. 8. Tylenol 650 q.6 hours. 9. Acetic acid 2% solution. 10. Fish oil, 2 g twice a day. 11. Gabapentin 400 mg, two times a day. 12. via G-tube twice a day. 13. Baclofen 10 mg via G-tube twice a day. 14. Bisacodyl suppository, 10 mg every other day. 15. Calcium carbonate 100 mg via G-tube daily. 16. Colace 100 mg via G-tube twice a day. 17. Phenergan suppository q.6 hours p.r.n. 18. cream daily and every other day. 19. Tylenol #3, one tablet q.8 hours p.r.n. 20. Artificial eye drops daily. 21. Cranberry juice 120 mL via G-tube daily. 22. She has tube feeds which is 1.2 calories, 110 ___/hour from 7 a.m. to 1 p.m. and 4 p.m. to 9 p.m. REVIEW OF SYSTEMS Unobtainable from the patient. PHYSICAL EXAMINATION GENERAL: Middle aged female lying in the bed comfortably, currently not in any distress. CURRENT VITAL SIGNS: Temperature 97.9, heart rate 102, respiratory rate 20, blood pressure 123/72, oxygen 95% on room air. HEENT: Head is atraumatic, normocephalic. NECK: Supple. No JVD, no thyromegaly. LUNGS: Clear to auscultation. No rhonchi, no wheezing. HEART: S1, S2. Regular rate and rhythm. ABDOMEN: Soft. Bowel sounds positive. No guarding, no rigidity. PEG tube in place. EXTREMITIES: No clubbing, no cyanosis. NEURO: She has a history of profound mental retardation with cerebral palsy. Unable to follow commands. Unit #: [id number] #: [id number] Patient: BABAK MARIE DIAGNOSTIC STUDIES LABORATORY: Sodium 138, potassium 4, chloride 97, CO2 33, BUN 19, creatinine 0.4, AST 37, ALT 30, alkaline phos. 120, lipase 25, amylase 25. UA shows cloudy appearance, positive leukocyte esterase 3+, WBC 200-300. White count 4, hemoglobin 11, hematocrit 37, platelets 285. IMAGING: She had a CT scan of abdomen without contrast on September 24 as an outpatient which shows no hepatic mass identified. Liver appears normal. G-tube in place, otherwise negative. She had a CT scan done today for questionable small bowel obstruction on KUB but CT scan report is pending at time of dictation. ASSESSMENT AND PLAN 1. Urinary tract infection with history of recurrent urinary tract infection: Extended spectrum betalactamase in urine. I will start the patient on Zosyn while in the hospital. Mostly, it is sensitive to the Macrobid. Will follow the final culture. While in hospital, given some Zosyn. 2. Abnormal KUB as an outpatient: Suspected small bowel obstruction. CT scan is pending at time of dictation. Will follow up CT scan. 3. History of profound mental retardation with cerebral palsy. 4. History of functional quadriplegia. 5. History of asthma. 6. Seizure disorder. 7. History of esophagitis/gastroesophageal reflux disease. 8. History of dysphagia, status post G-tube, on tube feeds. 9. Osteoporosis. 10. DVT prophylaxis: Place the patient on Lovenox. Dictated by Adriana Simpson M.D. AKSHAT/ara WHITTAKER: 09/25/2016 20:25 TD: 09/26/2016 10:26 JOB #: [id number] HISTORY AND PHYSICAL Page 1 of 1 X X HISTORY AND PHYSICAL
--- NOTE | ~2016-09-25 | CT2 ---
[facility] A Service of [facility] & [facility] RADIOLOGY TEXT RESULTS PATIENT: BABAK MARIE LOCATION: C2A 240-01 : [birth year] UNIT #: [id number] AGE: [address]: Bulmaro Mendoza MD SEX: F ORDER DR: [id number] [facility] [address] [facility] [place], [place] [address] [id number] I MR#: [id number] Acc #: [id number] NAME: BABAK MARIE : 1955 SEX: F STUDY DATE/TIME: 09/25/2016 19:38 UNIT: A ROOM: 240 STUDY DESCRIPTION: CT Abd and Pelv W Cont Attending Physician: Bulmaro Mendoza M.D. Ordering Physician: Moi Rabago M.D. Primary Care Physician: Bulmaro Mendoza M.D. MEDICAL IMAGING REPORT This report is preliminary unless electronic signature is present EXAM CT abdomen and pelvis with oral and IV contrast HISTORY Abdomen pain today. Elevated liver enzymes. TECHNIQUE CT abdomen and pelvis was performed with oral and IV contrast. This CT exam was performed with one or more of the following radiation dose reduction techniques: automatic exposure control, adjustment of mA and/or kV according to patient size, and iterative reconstruction. FINDINGS CT abdomen: Moderate diffuse gaseous distension of multiple loops of small and large bowel in the abdomen and pelvis, suggesting generalized ileus. The degree of bowel dilatation is similar to CT yesterday. Cholecystectomy. The liver, spleen, pancreas, kidneys, and adrenal glands are normal. Percutaneous gastrostomy tube extends into the mid stomach. No ascites. No inflammatory stranding. Normal caliber abdominal aorta. CT pelvis: Mild distension of the rectum, containing fluid. No free fluid in the pelvis. Urinary bladder, uterus, and adnexa are unremarkable. IMPRESSION 1. Ctij-xf-vlbaeguk generalized dilatation of small and large bowel in the abdomen and pelvis with several normal caliber small bowel loops in the lower abdomen and pelvis. Findings suggest generalized ileus. No significant change in the bowel caliber compared to CT yesterday. 2. Percutaneous gastrostomy tube extends into the stomach. 3. No free fluid or inflammatory changes. STS. [facility] A Service of [facility] & [facility] RADIOLOGY TEXT RESULTS PATIENT: BABAK MARIE LOCATION: [place] [address]- : [birth year] UNIT #: [id number] AGE: [address]: Bulmaro Mendoza MD SEX: F ORDER DR: Dictated by... Shukri Parisi M.D. THIS IS AN ELECTRONICALLY VERIFIED REPORT Shukri Parisi M.D. at 09/26/2016 2:46 PM NI/rachel TD: 09/26/2016 10:40 JOB #: [id number] MEDICAL IMAGING REPORT Page 1 of 1 COPY
--- NOTE | ~2016-09-25 | CO ---
Unit #: [id number] #: [id number] Patient: BABAK JIMENEZ [id number] [address] [address] [id number] I MR#: [id number] NAME: BABAK JIMENEZ ROOM: 240 Age: 61 Sex: F Admission Date: 09/25/2016 : 1955 Attending Physician: Bulmaro Mendoza M.D. Primary Care Physician: Bulmaro Mendoza M.D. Consultation Date: 09/27/2016 CONSULTATION REPORT HISTORY OF PRESENT ILLNESS Ms. Jimenez is a 61-year-old female with cerebral palsy and profound mental retardation, who is a resident of [place]. She was admitted because of some change in her behavior and abnormal plain film of the abdomen. She has had a history of multiple recurrent urinary tract infections with multiple different organisms all of which have demonstrated some degree of drug resistance. Most recently in August, she had an E. coli urinary tract infection that was an extended-spectrum beta-lactamase producing organism. PAST MEDICAL HISTORY Cerebral palsy with mental retardation, seizure disorder, functional quadriplegia, asthma, dysphagia, status post PEG placement, osteoporosis, reflux esophagitis, flexion contractures, bilateral cataract, rubella causing her cataracts and visual changes, chronic iritis, glaucoma, sinusitis, constipation, had a previous lap damaso, PEG placement, Kira fundoplication, rectal tag excision, abscess tooth extraction, history of exploratory laparotomy due to displacement of her G-tube, and subsequent peritonitis. FAMILY HISTORY Unknown. 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 ALLERGIES She is allergic to aminoglycosides, Vibramycin, Depakote, sulfa, trimethoprim, gentamicin, metoclopramide, and Mobic. HOME MEDICATIONS Well documented and/or extensive include phenazopyridine, Flonase, Pataday, albuterol, chlorhexidine, Zantac, vitamin D3, Tylenol, acetic acid, fish oil, Neurontin, Tylenol with Codeine, artificial tears, UTI-Stat liquid, Fiber-Stat, cranberry juice, Phenergan, Risamine ointment, Anucort, Mylicon, methenamine, GaviLyte solution, Zantac. REVIEW OF SYSTEMS Unobtainable. PHYSICAL EXAMINATION VITAL SIGNS: Temperature is 97.6, pulse 81, respirations 20, blood pressure 126/46 this morning. GENERAL: The patient is quiet and comfortable. She really does not Unit #: [id number] #: [id number] Patient: BABAK JIMENEZ respond to me. Her sitter reports that she had a quiet night and appears to be feeling better. HEENT: Unremarkable. CARDIAC: Regular rhythm. LUNGS: Clear. ABDOMEN: Nondistended and soft. She has a well-healed midline scar. There is no guarding. No rebound. No mass. No hernia. EXTREMITIES: Contracted, but no edema. DIAGNOSTIC STUDIES LABORATORY RESULTS: Today, her basic metabolic panel is entirely within normal limits. On admission, her comprehensive metabolic panel showed albumin of 4.5. Normal liver chemistries. Amylase and lipase normal. White count is 2200 with 51% neutrophils, 21% lymphocytes, and 16% monocytes. There is no bandemia. Hemoglobin 11.9, platelets 264,000. Urinalysis is nitrite negative, leukocyte esterase 3+, 200 to 300 white cells. Repeat urine culture is pending. IMAGING STUDIES: CT scan from 09/25/2016 is consistent with a generalized qvvq-ue-kjqcejmy ileus of both the small and large bowel. G-tube is well positioned. There were no other significant changes. ASSESSMENT AND PLAN The patient has a generalized ileus secondary to her urinary tract infection. She is on Zosyn currently, but her last urine culture done in 08/2016 showed an Escherichia coli with extended-spectrum beta-lactamase production and was resistant to ampicillin. The only thing it was sensitive to was nitrofurantoin. I would suggest that the Zosyn be discontinued and we start nitrofurantoin. I will stimulate her bowel and check a thyroid stimulating hormone. Magnesium and phosphorus need to be checked as well. Dictated by... Khadra Gordon/usha TD: 09/28/2016 03:22 JOB #: [id number] CONSULTATION REPORT Page 1 of 1 X Moi Matt MD CONSULTATION REPORT
--- NOTE | ~2016-09-25 | DS ---
Unit #: [id number] #: [id number] Patient: BABAK MARIE [id number] [address] [address] [id number] I MR#: [id number] NAME: BABAK MARIE ROOM: 240 Age: 61 Sex: F Admission Date: 09/25/2016 : 1955 Discharge Date: 09/30/2016 Attending Physician: Bulmaro Mendoza M.D. Primary Care Physician: Bulmaro Mendoza M.D. DISCHARGE SUMMARY DISCHARGE DIAGNOSES 1. Large small bowel ileus. 2. Urinary tract infection with enterococcus sensitive to nitrofurantoin. 3. Cerebral palsy with mental retardation and functional quadriplegia. PERTINENT HISTORY AND HOSPITAL COURSE The patient is a 61-year-old woman with cerebral palsy and profound mental retardation and functional quadriplegia, who is a resident of [place] and initially presented with abnormal plain film of the abdomen which was questionable for small bowel obstruction. During her hospitalization, the patient had a CAT scan of the abdomen which was consistent with generalized vppl-nz-qkolujix ileus of both the small and large bowel. G tube was well positioned and no other significant changes. Surgery was consulted, Dr. Moi Matt. G tube was placed to gravity drainage. The patient was given Dulcolax suppositories q.12 hours and Milk of Magnesia per G tube x1 dose. Her urinary tract infection urine cultures grew enterococcus sensitive to nitrofurantoin and patient was treated with nitrofurantoin 100 mg via G tube. Her ileus subsequently resolved. Patient started having regular bowel movements. No vomiting. Patient resumed G tube feeds and tolerated G tube feeds well. Patient now being transferred back to [facility]. DISCHARGE INSTRUCTIONS Transfer back to [facility]. Dictated by... Khadra Casillas TD: 09/30/2016 14:15 JOB #: [id number] Unit #: [id number] #: [id number] Patient: BABAK MARIE DISCHARGE SUMMARY Page 1 of 1 X X DISCHARGE SUMMARY
[~2016-09-25 16:27] MED LIST changes: +ACETAMINOP160 MG/13 GT; +ACETIC ACID 2% AU; +ANUCORT-HC PR; +ARTIFICIAL TEAR15 M6 OU; +BACLOFEN10 MG GT; +BISACODYL10 MG GT; +CALCIUM CA500 MG/5 M GT; +CERTAVITE GT; +COLACE50 MG/5 ML GT; +FIBERSTAT GT; +FISH OIL 11600 MG/5 GT; +FLONASE SENSIM9.9 ML; +GABAPENTIN400 M2 GT; +GAVILYTE-C SO4000 ML GT; +NEBCIN1.2 GM IV; +PHENERGAN SUPP25 M1 PR; +RISAMINE OINTM113 GM TOP; +SODIUM CHLORID; +TYLENOL #3 GT; +UTI-STAT L3875 MG/31 GT; +VITAMIN D32000 UNIT GT; +ZANTAC150 MG GT; +[UNRECOGNIZED DRUG - OTHER] GT; +[UNRECOGNIZED DRUG - OTHER] GT
[2016-09-25 17:52] LABS: BASOPHIL# 0.1 X10e3 (0-0.3); BASOPHIL% 1.8 % (0-2.5); EOSINOPHIL# 0.2 X10e3 (0-0.7); EOSINOPHIL% 4.1 % (0.0-7.0); HEMATOCRIT 37.5 % (35.0-45.0); HEMOGLOBIN 11.9 gm/dL (12.0-16.0); LYMPHOCYTE# 0.5 X10e3 (1.0-3.5); LYMPHOCYTE% 12.9 % (17.0-45.0); MEAN CELL VOLUME 84.4 FL (83-96); MEAN CORPUSCULAR HEMOGLOBIN 26.8 PG (28-34); MEAN CORPUSCULAR HGB CONC 31.8 g/dL (30-36); MEAN PLATELET VOLUME 8.3 FL (6.5-11.5); MONOCYTE# 0.8 X10e3 (0-1.0); MONOCYTE% 19.5 % (3.0-12.0); NEUTROPHIL# 2.5 X10e3 (1.5-7.1); NEUTROPHIL% 61.7 % (40-75); PLATELET COUNT 285 X10e3 (140-420); RED BLOOD COUNT 4.44 X10e (3.90-5.30); RED CELL DISTRIBUTION WIDTH 14.7 % (11.0-15.5)
[2016-09-25 17:53] LABS: URINE SOURCE CLEAN CATCH
[2016-09-25 17:55] LABS: DIFF IND NO
[2016-09-25 17:57] LABS: CULTURE INDICATED? YES; U HYALINE CASTS AUWI 0-2 /[LPF]; URINE APPEARANCE CLOUDY; URINE BACTERIA AUWI NEG (NEGATIVE); URINE BILIRUBIN NEG (NEG); URINE BLOOD NEG (NEG); URINE COLOR YELLOW; URINE GLUCOSE NEG (NEG); URINE KETONE NEG (NEG); URINE LEUKOCYTE ESTERASE 3+ (NEG); URINE NITRATE NEG (NEG); URINE PH 7.5 (5-8); URINE PROTEIN NEG (NEG); URINE SPECIFIC GRAVITY 1.019 (1.003-1.035); URINE SQUAMOUS EPITHELIAL CELL NONE SEEN /[HPF]; UWBCS1 AUWI 200-300 (0-5)
[2016-09-25 18:05] LABS: ALBUMIN SERUM 4.5 g/dL (3.5-5.0); BILIRUBIN, DIRECT 0.1 mg/dL (0.0-0.2); BILIRUBIN,INDIRECT 0.5 mg/dL (0.0-0.9); BILIRUBIN,TOTAL 0.6 mg/dL (0.2-2.0); BUN/CREATININE RATIO 47.5; CALCIUM SERUM 9.4 mg/dL (8.4-10.2); CREATININE SERUM 0.4 mg/dL (0.6-1.4); GLOM FILT RATE Estimated 113.2 mL/min (>60); PROTEIN TOTAL SERUM 7.3 g/dL (6.0-8.3)
[2016-09-25] MEDS ORDERED: ALBUTEROL2.5 MG/3 M INH (19:48)
[2016-09-25] MEDS ORDERED: CHLORHEXIDINE FL1 ML MC (19:50)
[2016-09-25] MEDS ORDERED: OMEGA 3 1,0001 EACH GT (19:52)
[2016-09-25] MEDS ORDERED: PATADAY2.5 ML OU (19:55)
[2016-09-25] MEDS ORDERED: PYRIDIUM PO (19:56)
[2016-09-26 05:54] LABS: BASOPHIL# 0.1 X10e3 (0-0.3); BASOPHIL% 2.4 % (0-2.5); EOSINOPHIL# 0.3 X10e3 (0-0.7); EOSINOPHIL% 9.2 % (0.0-7.0); HEMOGLOBIN 11.3 gm/dL (12.0-16.0); LYMPHOCYTE# 0.6 X10e3 (1.0-3.5); LYMPHOCYTE% 21.3 % (17.0-45.0); MEAN CELL VOLUME 84.3 FL (83-96); MEAN CORPUSCULAR HEMOGLOBIN 27.2 PG (28-34); MEAN CORPUSCULAR HGB CONC 32.2 g/dL (30-36); MEAN PLATELET VOLUME 7.8 FL (6.5-11.5); MONOCYTE# 0.5 X10e3 (0-1.0); MONOCYTE% 16.2 % (3.0-12.0); NEUTROPHIL# 1.5 X10e3 (1.5-7.1); NEUTROPHIL% 50.9 % (40-75); PLATELET COUNT 264 X10e3 (140-420); RED BLOOD COUNT 4.16 X10e (3.90-5.30); RED CELL DISTRIBUTION WIDTH 14.9 % (11.0-15.5); WHITE BLOOD COUNT 2.9 X10e3 (4.0-10.5)
[2016-09-26 06:04] LABS: DIFF IND NO
[2016-09-26 06:29] LABS: CALCIUM SERUM 8.9 mg/dL (8.4-10.2); CREATININE SERUM 0.5 mg/dL (0.6-1.4); GLOM FILT RATE Estimated 105.2 mL/min (>60); POTASSIUM 3.5 mmol/L (3.5-5.1)
[2016-09-27 06:11] LABS: HEMATOCRIT 37.3 % (35.0-45.0); HEMOGLOBIN 11.9 gm/dL (12.0-16.0); MEAN CELL VOLUME 83.9 FL (83-96); MEAN CORPUSCULAR HEMOGLOBIN 26.8 PG (28-34); MEAN CORPUSCULAR HGB CONC 31.9 g/dL (30-36); MEAN PLATELET VOLUME 7.6 FL (6.5-11.5); RED BLOOD COUNT 4.44 X10e (3.90-5.30); RED CELL DISTRIBUTION WIDTH 14.9 % (11.0-15.5); WHITE BLOOD COUNT 2.2 X10e3 (4.0-10.5)
[2016-09-27 06:50] LABS: CALCIUM SERUM 9.4 mg/dL (8.4-10.2); CREATININE SERUM 0.6 mg/dL (0.6-1.4); GLOM FILT RATE Estimated 99.1 mL/min (>60); POTASSIUM 3.6 mmol/L (3.5-5.1)
[2016-09-28 09:55] LABS: HEMATOCRIT 34.2 % (35.0-45.0); HEMOGLOBIN 11.1 gm/dL (12.0-16.0); MEAN CELL VOLUME 83.3 FL (83-96); MEAN CORPUSCULAR HEMOGLOBIN 27.1 PG (28-34); MEAN CORPUSCULAR HGB CONC 32.6 g/dL (30-36); MEAN PLATELET VOLUME 7.7 FL (6.5-11.5); RED BLOOD COUNT 4.1 X10e (3.90-5.30); WHITE BLOOD COUNT 2.3 X10e3 (4.0-10.5)
[2016-09-28 10:23] LABS: CALCIUM SERUM 8.7 mg/dL (8.4-10.2); CREATININE SERUM 0.5 mg/dL (0.6-1.4); GLOM FILT RATE Estimated 105.2 mL/min (>60); MAGNESIUM 2.2 mg/dL (1.6-3.0); PHOSPHOROUS 3.4 mg/dL (2.5-4.6); POTASSIUM 3.4 mmol/L (3.5-5.1)
== END 2016-09-30 14:56 | DRG 388 ==
LOC: CED 16:27 → C2A 20:15 → CEDOF 20:15 → CED 21:11 → C2A 21:59 → CEDOF 21:59 → C2A 09-30 14:56
PROVIDERS: Emergency Medicine; Internal Medicine; Specialist
DX: K56.7 Ileus, unspecified (principal); R53.2 Functional quadriplegia; F73 Profound intellectual disabilities; R13.10 Dysphagia, unspecified; Z93.1 Gastrostomy status; E44.1 Mild protein-calorie malnutrition; N39.0 Urinary tract infection, site not specified; Z68.1 Body mass index [BMI] 19.9 or less, adult; B95.2 Enterococcus as the cause of diseases classified elsewhere; G80.9 Cerebral palsy, unspecified; Z16.12 Extended spectrum beta lactamase (ESBL) resistance; G40.909 Epilepsy, unspecified, not intractable, without status epilepticus; K21.9 Gastro-esophageal reflux disease without esophagitis; M81.0 Age-related osteoporosis without current pathological fracture; Z87.440 Personal history of urinary (tract) infections; Z88.2 Allergy status to sulfonamides; Z88.1 Allergy status to other antibiotic agents; Z88.8 Allergy status to other drugs, medicaments and biological substances
CPT/HCPCS: 36415; 74150; 74177; 80048; 80076; 81003; 82150; 82947; 83690; 83735; 84100; 84443; 85025; 85027; 87086; 87088; 87186; 94640; 94760; 99285; J1650; J2543; Q9967